=== PATIENT | female | born 1960 | race Caucasian/White ===

== ENCOUNTER 2018-08-24 10:34 | Inpatient (IN) | payer OTHER ==
[~2018-08-24] VITALS: Ht 160 cm; Wt 93.0 kg
[2018-08-24 10:43] VITALS: BP 159/79
--- NOTE | 2018-08-24 10:49 | NUR ---
PT AMBULATES TO BED 2
--- NOTE | 2018-08-24 10:52 | NUR ---
BIB SELF C/O NOT FEELING WELL 3 DAYS, -N/V/D, AFRIBILE AT THIS TIME . PT REPORTED IMBALANCE WHEN SHE WALKED. ACCU CHECK AT HOME 397 X THIS AM. HX; SURGEY AT LEFT ABDOMEN X 2 YEARS AGO, DM, HTN. RX; ATENTOLOL, LOVASTATIN, JANUMET 50MG/1000, LANTUS, BENAZAPRIL, GLIPIZIDE, VITAMIN B 12. SKIN IS PINK/WARM/DRY; AAOX4 WITH EVEN AND STEADY GAIT; LUNGS CLEAR BL; PT DENIES ANY FEVER, CP, SOB, OR COUGH AT THIS TIME; PATIENT STATES PAIN OF 0/10 AT THIS TIME; PATIENT POSITIONED FOR COMFORT; HOB ELEVATED; BEDRAILS UP X2; BED DOWN. ER MD MADE AWARE OF PT STATUS.
--- NOTE | 2018-08-24 10:54 | NUR ---
Note undone in EDM - 08/24/18 at 1345 by [email or web address] BIB SELF C/O NOT FEELING WELL 3 DAYS, -N/V/D, AFRIBILE AT THIS TIME . PT REPORT IMBALANCE WHEN SHE WALKED. ACCU CHECK AT HOME 397 X THIS AM. HX; SURGEY AT LEFT ABDOMEN X 2 YEARS AGO, DM, HTN. RX; ATENTOLOL, LOVASTATIN, JANUMET 50MG/1000, LANTUS, BENAZAPRIL, GLIPIZIDE, VITAMIN B 12. SKIN IS PINK/WARM/DRY; AAOX4 WITH EVEN AND STEADY GAIT; LUNGS CLEAR BL; PT DENIES ANY FEVER, CP, SOB, OR COUGH AT THIS TIME; PATIENT STATES PAIN OF 0/10 AT THIS TIME; PATIENT POSITIONED FOR COMFORT; HOB ELEVATED; BEDRAILS UP X2; BED DOWN. ER MD MADE AWARE OF PT STATUS.
--- NOTE | 2018-08-24 11:24 | NUR ---
Patient being evaluated by physician at bedside.
[2018-08-24] MEDS ORDERED: NACL 0.9% 1,000 ML IV SCH (11:38)
[2018-08-24] MEDS ORDERED: cefTRIAXone 1,000 MG in DEXT 5% MINI-BAG PLUS 50 ML IV ONE (11:40)
[2018-08-24] MEDS ORDERED: PROMETHAZINE 25 MG/ML VIAL IM ONE (11:40)
[2018-08-24] MEDS ORDERED: KETOROLAC 30 MG/ML VIAL IVP ONE (11:40)
[2018-08-24] MEDS ORDERED: ONDANSETRON 4 MG/2 ML VIAL IVP ONE (11:40)
[2018-08-24] MEDS ORDERED: cefTRIAXone 1,000 MG VIAL ONE (11:54)
[2018-08-24 12:15] LABS: BASOPHILS % (AUTO) 0.5 % (0.0-2.0); EOSINOPHILS # (AUTO) 0.1 K/uL (0-0.4); EOSINOPHILS % (AUTO) 1.7 % (0.0-4.0); HEMATOCRIT 37.4 % (36-48); HEMOGLOBIN 12.6 g/dL (12.0-16.0); LYMPHOCYTES # (AUTO) 2.2 K/uL (2.5-16.5); MEAN CORPUSCULAR HEMOGLOBIN 34 pg (27-31); MEAN CORPUSCULAR HGB CONC 34 g/dL (33-37); MONOCYTES # (AUTO) 0.5 K/uL (0.8-1.0); MONOCYTES % (AUTO) 7.5 % (1.7-9.3); NEUTROPHILS # (AUTO) 4.4 K/uL (1.8-7.7); NEUTROPHILS % (AUTO) 60.3 % (42.2-75.2); PLATELET COUNT (AUTO) 227 K/uL (140-450); RED BLOOD CELL COUNT(AUTO) 3.74 MIL/uL (4.20-5.40); RED CELL DISTRIBUTION WIDTH 12.6 % (11.6-13.7); WHITE BLOOD COUNT (AUTO) 7.3 K/uL (4.8-10.8)
[2018-08-24] MEDS ORDERED: GLIP10TE PO (12:27)
[2018-08-24] MEDS ORDERED: HYDR-2726 PO (12:27)
[2018-08-24] MEDS ORDERED: SITA50TA3 PO (12:27)
[2018-08-24] MEDS ORDERED: LOVA20TA8 PO (12:27)
[2018-08-24] MEDS ORDERED: LANTUS SUBQ (12:27)
[2018-08-24] MEDS ORDERED: ATEN25TA7 PO (12:27)
[2018-08-24 12:45] LABS: ACETONE, SERUM NEGATIVE (NEGATIVE)
[2018-08-24 12:48] LABS: PROTHROMBIN TIME 9.4 secs (10.8-13.4)
[2018-08-24 12:54] LABS: APPEARANCE,URINE HAZY (CLEAR); COLOR,URINE YELLOW (YELLOW)
[2018-08-24 12:55] LABS: BILIRUBIN,URINE NEGATIVE (NEGATIVE); BLOOD, URINE NEGATIVE (NEGATIVE); LEUKOCYTE ESTERASE ,URINE 2+ (NEGATIVE); NITRITE, URINE NEGATIVE (NEGATIVE); UGLUCOSE 2+ (NEGATIVE)
[2018-08-24 13:07] LABS: ALBUMIN 3.8 g/dL (3.4-5.0); AMYLASE 44 U/L (25-115); ASPARTATE AMINOTRANSFERASE 11 U/L (15-37); CARBON DIOXIDE 29.3 mmol/L (21-32); CHLORIDE 104 mmol/L (98-107); CREATININE 0.9 mg/dL (0.6-1.3); GFR ARICAN-AMERICAN 83 mL/min (>90); GLUCOSE 284 mg/dL (74-106); LIPASE 124 U/L (73-393); POTASSIUM 4.3 mmol/L (3.5-5.1); SODIUM SERUM 138 mmol/L (136-145); TOTAL BILIRUBIN 0.3 mg/dL (0.0-1.0); UREA NITROGEN, BLOOD 23 mg/dL (7-18)
[2018-08-24] MEDS: NACL 0.9% 1,000 ML IV SCH (13:08)
[2018-08-24] MEDS ORDERED: ONDANSETRON 4 MG/2 ML VIAL IVP PRN (13:10)
[2018-08-24] MEDS ORDERED: ACETAMINOPHEN 325 MG TAB PO PRN (13:10)
[2018-08-24] MEDS ORDERED: DEXTROSE 50% 50 ML SYR IVP PRN (13:15)
[2018-08-24] MEDS ORDERED: INSULIN LISPRO SLIDING SCALE 100 UNITS/ML VIAL SUBQ PRN (13:15)
[2018-08-24 13:34] LABS: URIC ACID 4.3 mg/dL (2.6-7.2)
[2018-08-24 13:36] LABS: RBC,URINE NONE SEEN /HPF (0-5)
--- NOTE | 2018-08-24 14:10 | NUR ---
PATIENT ADMITTED FROM ER. C/O DIZZINESS HEADACHE. PATIENT ARRIVED ON GURNEY. DENIES HEADACHE AT THIS TIME. ALERT AND ORIENTED. DENIES DIZZINESS. DENIES PAIN. PATIENT IV SITE PATENT AND INTACT. AMBULATORY WITH ASSIST. ON ROOM AIR, NO ACUTE RESPIRATORY DISTRESS NOTED. PT'S MOTHER AT BEDSIDE. ORIENTED PT TO HOSPITAL ENVIRONMENT. UPDATED ON CURRENT PLAN OF CARE, IN AGREEMENT. CALL LIGHT WITHIN REACH. PATIENT POSITIONED FOR COMFORT. TO FOLLOW.
--- NOTE | 2018-08-24 14:12 | NUR ---
PT TAKEN TO FLOOR BY RIAZ SHORT AND EMT WENDY
--- NOTE | 2018-08-24 14:13 | NUR ---
Patient will be admitted to care of DR. GIBBS. Admited to TELE. Will go to [id number]. Belongings list completed. Report to KAYLA MELLO.
[2018-08-24 14:20] VITALS: BP 147/68
--- NOTE | 2018-08-24 14:28 | NUR ---
Note angus in ED - 08/24/18 at 1429 by ALEX Patient will be admitted to care of DR. GIBBS. Admited to TELE. Will go to [id number]. Belongings list completed. Report to KAYLA MELLO.
[2018-08-24] MEDS: BLOOD GLUCOSE MONITORING 1 DEV DEV FS SCH ×2 (16:55→20:05)
[2018-08-24] MEDS ORDERED: INSULIN LANTUS 100 UNITS/ML 10 ML VIAL SUBQ SCH (17:00)
--- NOTE | 2018-08-24 17:00 | NUR ---
ASSISTED PT IN AMBULATION TO BATHROOM WITH STEADY GAIT. IV SITE PATENT AND INTACT. FAMILY AT BEDSIDE, UPDATED WITH CURRENT PLAN OF CARE. IN AGREEMENT. CALL LIGHT WITHIN REACH.
--- NOTE | 2018-08-24 19:20 | NUR ---
SBAR REPORT GIVEN TO RIAZ SZYMANSKI AT PT BEDSIDE. PATIENT RESTING IN BED, NO S/S OF ACUTE DISTRESS NOTED.
--- NOTE | 2018-08-24 19:21 | NUR ---
REPORT RECEIVED FROM AM NURSE AT BEDSIDE. PT IN STABLE CONDITION. AAOX4. INTRODUCED SELF TO PT. BOARD UPDATED. NO COMPLAINTS OF DIZZINESS, PAIN, NAUSEA, OR SOB. IV SITE L AC 20G RUNNING NS@100ML/HR PATENT AND INTACT. SKIN WARM, DRY, AND INTACT WITH NO OPEN WOUNDS. BED LOCKED IN LOW POSITION. CALL MENDEZ WITHIN REACH. WILL CONTINUE TO MONITOR.
[2018-08-24 20:00] VITALS: BP 117/68
--- NOTE | 2018-08-24 20:05 | NUR ---
JANUVIA GIVEN PO. PT TOLERATED WELL. BS 132. NO INSULIN COVERAGE NEEDED.
--- NOTE | 2018-08-24 22:30 | NUR ---
PT SLEEPING COMFORTABLY. NO S/S OF DISTRESS NOTED. BREATHING EVEN, UNLABORED, AND WNL. WILL CONTINUE TO MONITOR.
[2018-08-25] VITALS: BP 120/77
--- NOTE | 2018-08-25 01:30 | NUR ---
PT SLEEPING LEFT LATERAL. NO S/S OF DISTRESS NOTED. NO COMPLAINTS OF PAIN, SOB, DIZZINESS, OR NAUSEA.
[2018-08-25 04:00] VITALS: BP 110/65
--- NOTE | 2018-08-25 04:15 | NUR ---
VS STABLE. NO COMPLAINTS OF DIZZINESS, NAUSEA, SOB, OR PAIN. BREATHING EVEN, UNLABORED, AND WNL. WILL CONTINUE TO MONITOR.
[2018-08-25] MEDS: NACL 0.9% 1,000 ML IV SCH ×2 (04:18→09:08)
[2018-08-25] MEDS: BLOOD GLUCOSE MONITORING 1 DEV DEV FS SCH ×2 (06:14→11:51)
--- NOTE | 2018-08-25 06:16 | NUR ---
BS 164. 2 UNITS OF HUMALOG GIVEN. PT TOLERATED WELL.
--- NOTE | 2018-08-25 07:10 | NUR ---
REPORT GIVEN TO AM NURSE AT BEDSIDE. PT IN STABLE CONDITION.
--- NOTE | 2018-08-25 07:11 | NUR ---
RECEIVED BEDSIDE REPORT FROM LEATHER PIECE INSPECTOR NURSE. PATIENT IS AWAKE, ALERT AND ORIENTEDX4. NO SIGNS OF DISTRESS ON RA. PATIENT IS AMBULATORY, GAIT IS STEADY. SKIN INTACT. TELE MONITOR IN PLACE. L AC 20G INFUSING NS AT 100. CLEAN, DRY AND INTACT. BED IN LOW POSITION. CALL LIGHT WITHIN REACH. WILL CONTINUE TO MONITOR THE PATIENT
--- NOTE | 2018-08-25 07:47 | NUR ---
PATIENT HAS BEEN SCREENED AND CATEGORIZED HIGH NUTRITION RISK. PATIENT WILL BE SEEN WITHIN 1-2 DAYS OF ADMISSION. 08/25/18-08/26/[address]
[2018-08-25 07:51] LABS: BASOPHILS % (AUTO) 0.4 % (0.0-2.0); EOSINOPHILS # (AUTO) 0.1 K/uL (0-0.4); LYMPHOCYTES # (AUTO) 2.3 K/uL (2.5-16.5); LYMPHOCYTES % (AUTO) 33.2 % (20.5-51.1); MEAN CORPUSCULAR HEMOGLOBIN 34 pg (27-31); MEAN CORPUSCULAR HGB CONC 34 g/dL (33-37); MEAN CORPUSCULAR VOLUME 99.9 fL (80-94); MONOCYTES # (AUTO) 0.5 K/uL (0.8-1.0); MONOCYTES % (AUTO) 7.8 % (1.7-9.3); NEUTROPHILS # (AUTO) 3.9 K/uL (1.8-7.7); NEUTROPHILS % (AUTO) 56.6 % (42.2-75.2); PLATELET COUNT (AUTO) 213 K/uL (140-450); RED CELL DISTRIBUTION WIDTH 12.5 % (11.6-13.7)
[2018-08-25 08:00] VITALS: BP 132/62
[2018-08-25] MEDS ORDERED: glipiZIDE ER 5 MG TABER PO SCH (08:00)
[2018-08-25 08:02] LABS: CHOL/HDL RATIO 4.5 (1-4.5)
--- NOTE | 2018-08-25 08:40 | NUR ---
ADMINISTERED MEDS. PATIENT AMBULATING W PT. WILL CONTINUE TO MONITOR THE PATIENT
[2018-08-25] MEDS ORDERED: LOSARTAN 50 MG TAB PO SCH (09:00)
[2018-08-25] MEDS ORDERED: ASPIRIN 325 MG TAB PO SCH (09:00)
[2018-08-25] MEDS ORDERED: ATORVASTATIN 20 MG TAB PO SCH (09:00)
[2018-08-25] MEDS ORDERED: ENOXAPARIN 40 MG/0.4 ML SYR SUBQ SCH (09:00)
[2018-08-25] MEDS ORDERED: ATENOLOL 25 MG TAB PO SCH (09:00)
[2018-08-25] MEDS ORDERED: CEPH-1019 PO (09:10)
[2018-08-25] MEDS ORDERED: ASPI-1173 PO (09:53)
--- NOTE | 2018-08-25 10:00 | NUR ---
PATIENT IS SLEEPING. NO SIGNS OF DISTRESS
--- NOTE | 2018-08-25 11:08 | NUR ---
EDUCATED PATIENT ON DISEASE PROCESS, ABN S/SX, IMPORTANCE OF CONTROLLING BLOOD SUGAR, EDUCATED ON MEDS. GAVE PRESCRIPTION. EDUCATED ON WHEN TO GO TO THE ER. AND TO FOLLOW UP W PCP. PATIENT VERBALIZED UNDERSTANDING. IV REMOVED, TIP INTACT. ID BANDS REMOVED. PATIENT CHANGING WAITING FOR HUSBANDS ARRIVAL
--- NOTE | 2018-08-25 11:40 | NUR ---
PATIENT LEFT IN STABLE CONDITION IN WHEELCHAIR W . TELE MONITOR IS REMOVED. PATIENT REFUSED VACCINES, EDUCATION GIVEN. BS 166. NO INSULIN PATIENT HAS NO LUNCH AT THIS TIME
== END 2018-08-25 11:40 | disposition home or self-care (01) | DRG 463 ==
LOC: MED 10:34 → MMU 13:35
PROVIDERS: ADMIT Internal Medicine; ATTEND Internal Medicine
DX: N39.0 Urinary tract infection, site not specified (principal); E11.65 Type 2 diabetes mellitus with hyperglycemia; E78.5 Hyperlipidemia, unspecified; I10 Essential (primary) hypertension; E66.9 Obesity, unspecified; M19.90 Unspecified osteoarthritis, unspecified site; Z96.659 Presence of unspecified artificial knee joint; Z68.36 Body mass index [BMI] 36.0-36.9, adult; Z79.4 Long term (current) use of insulin; Z79.899 Other long term (current) drug therapy; Z90.710 Acquired absence of both cervix and uterus
CPT/HCPCS: 36415; 70450; 71045; 80053; 81001; 82009; 82150; 82948; 83036; 83690; 83735; 84484; 84550; 85025; 85610; 85730; 87081; 87086; 87186; 93880; 96361; 96365; 96372; 96375; 97535; 99285; J0696; J1650; J1815; J1885; J2405; J2550; J7030; J7060; Q0092

== ENCOUNTER 2018-10-15 12:27 | Emergency (ER) | payer OTHER ==
[~2018-10-15] VITALS: Ht 160 cm; Wt 99.4 kg
[~2018-10-15 12:27] MED LIST: ASPI-1173 PO; ATEN25TA7 PO; CEPH-1019 PO; GLIP10TE PO; HYDR-2726 PO; LANTUS SUBQ; LOVA20TA8 PO; SITA50TA3 PO
[2018-10-15 13:09] VITALS: BP 171/83
[2018-10-15] MEDS ORDERED: KETOROLAC 60 MG/2 ML VIAL IM ONE (13:30)
[2018-10-15 15:38] VITALS: BP 116/89
== END 2018-10-15 15:33 | disposition home or self-care (01) ==
LOC: MED 12:27
DX: G89.29 Other chronic pain (principal); M54.6 Pain in thoracic spine; E11.9 Type 2 diabetes mellitus without complications; I10 Essential (primary) hypertension; Z90.710 Acquired absence of both cervix and uterus; Z79.4 Long term (current) use of insulin; Z79.82 Long term (current) use of aspirin; Z79.899 Other long term (current) drug therapy
CPT/HCPCS: 96372; 99283; J1885